=== PATIENT | male | born 1960 | race African-American/Black ===

== ENCOUNTER 2022-07-07 10:48 | Inpatient (IN) ==
[2022-07-07] MEDS ORDERED: NALOXONE 0.4 MG/ML VIAL ONE (10:57)
[2022-07-07 11:21] LABS: Basophils % 0.1 % (0.0-0.8); Eosinophils % 0.3 % (0.00-10.9); Hematocrit 40.4 VOL% (42.0-52.0); Hemoglobin 13.6 GM/DL (14.0-18.0); Immature Granulocytes % 0.3 %; Immature Granulocytes Absolute 0.03 #; Lymphocytes # 1.5 10*3/uL (1.4-4.0); Lymphocytes % 16.4 % (21.2-54.2); Mean Corpuscular HGB Conc 33.7 GM/DL (32-36); Mean Corpuscular Volume 90.2 FL (87-102); Mean Platelet Volume 9.9 FL (9.6-12.0); Monocytes # 0.9 10*3/uL (0.11-0.8); Monocytes % 9.9 % (1.7-12.7); Platelet Count 194 T/CUMM (130-400); Red Blood Count 4.48 MC/CUMM (3.8-5.5); Red Cell Distribution Width 12.9 % (9.3-17.3); White Blood Count 8.83 T/CUMM (4-12)
[2022-07-07 11:45] LABS: Potassium 3.3 MMOL/L (3.5-5.1)
[2022-07-07 11:59] LABS: Salicylate < 2.8 MG/DL (2.8-20)
[2022-07-07 12:00] LABS: Acetaminophen < 2.0 UG/ML (10-30)
[2022-07-07] MEDS ORDERED: LACTULOSE 20 GM/30 ML UDCUP PO PRN (15:43)
[2022-07-07] MEDS ORDERED: ONDANSETRON 4 MG/2 ML VIAL IV PRN (15:43)
[2022-07-07] MEDS ORDERED: SIMETHICONE CHEW 125 MG TABLET PO PRN (15:43)
[2022-07-07] MEDS ORDERED: CALCIUM CARBONATE CHEW 500 MG TABLET PO PRN (15:43)
[2022-07-07] MEDS ORDERED: BISACODYL 5 MG TABLET PO PRN (15:43)
[2022-07-07] MEDS ORDERED: ALUMINUM/MAGNES/SIMETH MAX STR 30 ML UDCUP PO PRN (15:43)
[2022-07-07] MEDS ORDERED: POTASSIUM CHLORIDE 20 MEQ TABLET PO STA (15:47)
[2022-07-07] MEDS: LACTATED RINGERS 1,000 ML IV SCH (17:10)
[2022-07-07] MEDS: ENOXAPARIN 40 MG/0.4 ML SYRINGE SUBCUT SCH (17:10)
[2022-07-07 17:35] LABS: Barbiturates Screen,Urine Negative (Negative); Benzodiazepines Screen,Urine Negative (Negative); Cannabinoid Screen,Urine Negative (Negative); Opiate Screen,Urine Negative (Negative); Phencyclidine Screen,Urine Negative (Negative)
[2022-07-07 21:04] LABS: Alanine Aminotransferase 29 U/L (16-61); Albumin 3.4 G/DL (3.4-5.0); Alkaline Phosphatase 48 U/L (45-117); Aspartate Amino Transferase 35 U/L (0-37); Bilirubin,Direct < 0.100 MG/DL (0.0-0.20); Bilirubin,Indirect 0.3 MG/DL (0.0-1.0); Bilirubin,Total < 0.39 MG/DL (0.20-1.00)
[2022-07-07] MEDS: ASENAPINE MALEATE 5 MG SL SCH (21:17)
[2022-07-07] MEDS: DOCUSATE SODIUM 100 MG CAPSULE PO SCH (21:22)
[2022-07-07] MEDS: ESCITALOPRAM 10 MG TABLET PO SCH (21:22)
[2022-07-08] MEDS: LACTATED RINGERS 1,000 ML IV SCH (06:00)
[2022-07-08 06:32] LABS: Eosinophils # 0.1 10*3/uL (0.0-0.87); Eosinophils % 1.9 % (0.00-10.9); Hematocrit 36.9 VOL% (42.0-52.0); Hemoglobin 12.6 GM/DL (14.0-18.0); Immature Granulocytes % 0.5 %; Immature Granulocytes Absolute 0.02 #; Lymphocytes # 1.1 10*3/uL (1.4-4.0); Lymphocytes % 30.5 % (21.2-54.2); Mean Corpuscular HGB Conc 34.1 GM/DL (32-36); Mean Corpuscular Volume 90.4 FL (87-102); Mean Platelet Volume 9.7 FL (9.6-12.0); Monocytes # 0.4 10*3/uL (0.11-0.8); Monocytes % 11.4 % (1.7-12.7); Neutrophils % 55.7 % (38.7-73.9); Platelet Count 176 T/CUMM (130-400); Red Blood Count 4.08 MC/CUMM (3.8-5.5); Red Cell Distribution Width 13.1 % (9.3-17.3)
[2022-07-08 07:10] LABS: Calcium 9.4 MG/DL (8.5-10.1); Risk Ratio 3.92; Thyroid Stimulating Hormone 0.729 uIU/ml (0.358-3.74); VLDL Cholesterol 18.4 MG/DL
[2022-07-08] MEDS: DOCUSATE SODIUM 100 MG CAPSULE PO SCH ×2 (08:33→21:27)
[2022-07-08] MEDS: ESCITALOPRAM 10 MG TABLET PO SCH ×2 (08:33→21:27)
[2022-07-08] MEDS: PANTOPRAZOLE 40 MG TABLET PO SCH (08:33)
[2022-07-08] MEDS: POLYETHYLENE GLYCOL POWDER 17 GM PACK PO SCH (08:34)
[2022-07-08] MEDS: ASENAPINE MALEATE 5 MG SL SCH ×2 (08:36→21:28)
[2022-07-08] MEDS: NICOTINE 21 MG/24 HR PATCH TRANSDERM SCH (12:00)
[2022-07-08] MEDS: ENOXAPARIN 40 MG/0.4 ML SYRINGE SUBCUT SCH (17:00)
[2022-07-08] MEDS: ACETAMINOPHEN 325 MG TABLET PO PRN (21:28)
[2022-07-09 05:40] LABS: Basophils % 0.2 % (0.0-0.8); Eosinophils # 0.1 10*3/uL (0.0-0.87); Eosinophils % 2.4 % (0.00-10.9); Hematocrit 36.6 VOL% (42.0-52.0); Hemoglobin 12.6 GM/DL (14.0-18.0); Lymphocytes # 1.2 10*3/uL (1.4-4.0); Lymphocytes % 29.3 % (21.2-54.2); Mean Corpuscular HGB Conc 34.4 GM/DL (32-36); Mean Corpuscular Volume 89.7 FL (87-102); Mean Platelet Volume 9.5 FL (9.6-12.0); Monocytes # 0.5 10*3/uL (0.11-0.8); Monocytes % 12.7 % (1.7-12.7); Neutrophils % 55.4 % (38.7-73.9); Platelet Count 162 T/CUMM (130-400); Red Blood Count 4.08 MC/CUMM (3.8-5.5); Red Cell Distribution Width 12.7 % (9.3-17.3); White Blood Count 4.09 T/CUMM (4-12)
[2022-07-09 06:19] LABS: Osmolality,Calculated 277.5 MOS/KG (273-304); Potassium 3.7 MMOL/L (3.5-5.1)
[2022-07-09] MEDS: NICOTINE 21 MG/24 HR PATCH TRANSDERM SCH (09:29)
[2022-07-09] MEDS: PANTOPRAZOLE 40 MG TABLET PO SCH (09:29)
[2022-07-09] MEDS: DOCUSATE SODIUM 100 MG CAPSULE PO SCH ×2 (09:29→21:29)
[2022-07-09] MEDS: ESCITALOPRAM 10 MG TABLET PO SCH ×2 (09:29→21:29)
[2022-07-09] MEDS: ASENAPINE MALEATE 5 MG SL SCH ×2 (09:30→21:31)
[2022-07-09] MEDS: POLYETHYLENE GLYCOL POWDER 17 GM PACK PO SCH (09:30)
[2022-07-09] MEDS: ENOXAPARIN 40 MG/0.4 ML SYRINGE SUBCUT SCH (17:20)
[2022-07-09] MEDS: ACETAMINOPHEN 325 MG TABLET PO PRN (21:29)
[2022-07-10] MEDS: PANTOPRAZOLE 40 MG TABLET PO SCH (09:44)
[2022-07-10] MEDS: DOCUSATE SODIUM 100 MG CAPSULE PO SCH (09:44)
[2022-07-10] MEDS: ESCITALOPRAM 10 MG TABLET PO SCH (09:44)
[2022-07-10] MEDS: POLYETHYLENE GLYCOL POWDER 17 GM PACK PO SCH (09:44)
[2022-07-10] MEDS: NICOTINE 21 MG/24 HR PATCH TRANSDERM SCH (09:44)
[2022-07-10] MEDS: ASENAPINE MALEATE 5 MG SL SCH (09:54)
[2022-07-10] MEDS ORDERED: TUBERCULIN SKIN TEST 0.1 ML SYRINGE INTRADERM ONE (10:00)
[2022-07-10 11:37] VITALS: BP 110/57
[2022-07-10] MEDS: LACTATED RINGERS 1,000 ML IV SCH ×3 (13:59→14:01)
== END 2022-07-10 15:15 | DRG 58 ==
LOC: EDUNIT# → EDBD → N.ED 10:48 → SUATTDRO 15:42 → N.3E 15:42
PROVIDERS: ADMIT Internal Medicine; ATTEND Family Medicine